=== PATIENT | female | born 1975 | race Hispanic/Latino ===

== ENCOUNTER 2021-07-30 13:33 | Outpatient (CLI) | payer OTHER ==
[2021-07-30 14:46] LABS: Bilirubin Neg (Negative); Blood, Urine 50 (Negative); Clarity Cloudy (Clear); Glucose, Urine (Dipstick) Normal (Negative); Ketone, Urine Negative (Negative); Leukocyte 500 (Negative); Nitrite Negative (Negative); Protein, Urine (Dipstick) 30 mg/dl (Neg-Trace); Specific Gravity, Urine 1.025 (1.002-1.036); Urobilinogen Normal mg/dL (Less than 2)
[2021-07-30 14:52] LABS: Mean Corpuscular Hemoglobin 28.7 pg (27.0-33.0); Mean Corpuscular Volume 92.6 fl (81.6-98.3); Mean Platelet Volume 10.5 fl (7.4-10.4); Platelet Count 321 10x3/uL (150-450); RBC Distribution Width 14.4 % (11.5-14.5); Red Blood Cell (RBC) Count 4.18 10x6/uL (3.90-5.03); White Blood Cell (WBC) Count 8.9 10x3/uL (3.5-10.5)
[2021-07-30 14:54] LABS: Anion Gap 13 mmol/L (10-20); BUN (Urea Nitrogen) 13 mg/dL (7.0-18.7); Calc. Creatinine Clearance 0 mL/min (70-130); Calcium 9.1 mg/dL (7.8-10.44); Carbon Dioxide 26 mmol/L (22-29); Chloride 104 mmol/L (98-107); Glucose 108 mg/dL (70-105); Sodium 139 mmol/L (136-145)
[2021-07-30 15:12] LABS: Bacteria/HPF 2+ HPF (None Seen); RBC/HPF 0-3 HPF (0-3); WBC/HPF 21-50 HPF (0-3)
== END 2021-07-30 13:34 | disposition home or self-care (01) ==
LOC: LABBT 13:33
PROVIDERS: ATTEND Urology
DX: Z01.812 Encounter for preprocedural laboratory examination (principal); N20.1 Calculus of ureter
CPT/HCPCS: 80048; 81001; 85027; 87086

== ENCOUNTER 2021-08-02 05:59 | Day surgery (SDC) | payer OTHER ==
[2021-07-29 13:56] VITALS: BMI 23.3
[2021-08-02] MEDS ORDERED: Fentanyl 250 MCG/5 ML VIAL ONE (08:25)
[2021-08-02] MEDS ORDERED: Levofloxacin 500 mg/D5W 100 ml Premix Bag ONE (08:28)
[2021-08-02] MEDS ORDERED: Dexamethasone 20 MG/5 ML VIAL ONE (08:33)
[2021-08-02] MEDS ORDERED: Ketorolac Tromethamine 30 MG/ML VIAL ONE (08:33)
[2021-08-02] MEDS ORDERED: Ondansetron PF 4 MG/2 ML Vial ONE (08:33)
[2021-08-02] MEDS ORDERED: PHENYLEPHRINE-NS 100 MCG/ML 10 ML SYRINGE ONE (08:33)
[2021-08-02] MEDS ORDERED: Lidocaine 1% PF 5 ML VIAL ONE (08:33)
[2021-08-02] MEDS ORDERED: PROPOFOL 200 MG/20 ML VIAL ONE (08:33)
[2021-08-02] MEDS ORDERED: Iothalamate Meglumine 60% 50 ML VIAL FS ONE (09:23)
[2021-08-02] MEDS ORDERED: Phenazopyridine HCl 100 MG TAB ONE (09:31)
[2021-08-02] MEDS ORDERED: Oxybutynin 5 MG TAB ONE (09:31)
== END 2021-08-02 12:36 | disposition home or self-care (01) ==
LOC: SDC 05:59
PROVIDERS: ATTEND Urology
PROC: BT12ZZZ Fluoroscopy of Left Kidney (ICD-10-PCS; principal; 2021-08-02)
PROC: 0T778DZ Dilation of Left Ureter with Intraluminal Device, Via Natural or Artificial Opening Endoscopic (ICD-10-PCS; principal; 2021-08-02)
PROC: 0TC78ZZ Extirpation of Matter from Left Ureter, Via Natural or Artificial Opening Endoscopic (ICD-10-PCS; principal; 2021-08-02)
DX: N20.1 Calculus of ureter (principal)
CPT/HCPCS: 74420; 82365; 88300; C2617; J1100; J1885; J1956; J2405; J2704; J3010; Q9961-U8

== ENCOUNTER 2022-02-10 09:47 | Outpatient (CLI) | payer OTHER | END 2022-02-10 09:48 | disposition home or self-care (01) | LOC: BICMAMMO 09:47 | PROVIDERS: ATTEND Internal Medicine | DX: Z12.31 Encounter for screening mammogram for malignant neoplasm of breast (principal) | CPT/HCPCS: 77063; 77067 ==

== ENCOUNTER 2023-03-11 10:21 | Outpatient (CLI) | payer OTHER | END 2023-03-11 10:22 | disposition home or self-care (01) | LOC: BICMAMMO 10:21 | PROVIDERS: ATTEND Internal Medicine | DX: Z12.31 Encounter for screening mammogram for malignant neoplasm of breast (principal) | CPT/HCPCS: 77063; 77067 ==